=== PATIENT | female | born 1975 | race Hispanic/Latino ===

== ENCOUNTER 2020-07-18 08:27 | Day surgery (SDC) | payer OTHER ==
[2020-07-18 08:40] LABS: Specific Gravity 1.025 (1.005-1.030)
[2020-07-18] MEDS ORDERED: NS 0.9% VIAL 40 ML ONE (09:06)
[2020-07-18] MEDS ORDERED: CEFAZOLIN SODIUM 1 GM/VIAL ONE (09:06)
[2020-07-18] MEDS ORDERED: propofoL 200 MG/20 ML VIAL IV ONE (09:07)
[2020-07-18] MEDS ORDERED: MIDAZOLAM HCL 2 MG/2 ML INJ ONE (09:07)
[2020-07-18] MEDS ORDERED: LIDOCAINE 2% MPF 5 ML VIAL ONE (09:07)
[2020-07-18] MEDS ORDERED: GENTAMICIN SULF 80 MG/2ML INJ ONE (09:07)
[2020-07-18] MEDS ORDERED: GLYCOPYRROLATE 0.2 MG/ML SYR ONE ×2 (09:07)
[2020-07-18] MEDS ORDERED: LIDOCAINE 1% W/EPI 1:100,000 MDV 20 ML VIAL ONE (09:07)
[2020-07-18] MEDS ORDERED: Ringers Lactate 1,000 ML IV ONE ×4 (09:08→14:19)
[2020-07-18] MEDS ORDERED: FENTANYL CITR 250 MCG/5 ML ONE (09:08)
[2020-07-18] MEDS ORDERED: Mastisol Adhesive Liq ONE ×2 (09:08→10:39)
[2020-07-18] MEDS ORDERED: ROCURONIUM 50 MG/5 ML VIAL IV ONE ×3 (09:08→12:44)
[2020-07-18] MEDS ORDERED: BACITRACIN 50000 UNIT VIAL ONE (09:08)
[2020-07-18] MEDS ORDERED: ONDANSETRON 4 MG/2 ML VIAL ONE ×2 (09:09→16:16)
[2020-07-18] MEDS ORDERED: dexAMETHasone 10 MG/ML VIAL ONE (09:10)
[2020-07-18] MEDS ORDERED: KETOROLAC 30 MG/ML INJ ONE ×2 (09:10→12:13)
[2020-07-18] MEDS ORDERED: CEFAZOLIN/SWI 1gm 1 GM/10 ML SYR ONE (09:15)
[2020-07-18] MEDS ORDERED: SCOPOLAMINE HYDROBROMIDE PATCH TD ONE (09:15)
[2020-07-18] MEDS ORDERED: ACETAMINOPHEN 500 MG TAB ONE (09:15)
[2020-07-18] MEDS ORDERED: CELECOXIB 100 MG CAPSULE ONE (09:15)
[2020-07-18] MEDS ORDERED: EPHEDRINE SULF 50 MG/ML VIAL ONE (11:13)
[2020-07-18] MEDS ORDERED: FENTANYL CITR 100 MCG/2 ML ONE ×2 (11:45→13:42)
[2020-07-18] MEDS ORDERED: HYDROCODONE/APAP 7.5/325 MG TAB ONE (16:09)
[2020-07-18 17:03] VITALS: BP 114/73; TEMP 97.1; O2SAT 95
--- NOTE | 2020-07-18 20:29 | OP ---
Surgeon: Derrek Huntley MD Preoperative Diagnosis: Breast descent after implantation. Postoperative Diagnosis: Breast descent after implantation. Procedure: Explantation and lift. Anesthesia: General. Procedure In Detail: After satisfactory induction of general anesthesia, chest was prepped with Dura Prep and dry sterile drapes applied in the usual manner. A 5 cm template was used to outline the rig ht and left areolas and then normal shaped incision was outlined. De-epithelialized with dermabrader and Epicut. Transverse incision was made in the right breast with electrocautery. Flap was thinned to approximately 1.3 cm, elevated toward the sternum, clavicle, anterior axillary line. Then the in ferior incision was made in the partial thickness skin, and then the deepest tissue was formed into c one. After the implant was removed by making lateral incision, implant was retropectoral, smooth wit h 350 filled to 432 on the right and 432 on left. The capsule was left intact. The cone was formed with 2-0 PDS sutures. Then straps were elevated at 12 o'clock, 1:30 and 3 o'clock position. Straps were then woven in and out of the pectoralis muscle back to the base of the cone, tied themselves wit h several 2-0 PDS sutures. This was done for the 12 o'clock, 1:30 and 3 o'clock. Strap was sewn ove r the sternum at 3 o'clock position with 2-0 Ethibond sutures. Wounds were typically stapled closed. Left side was done in a mirror-image manner. We then returned to the right side and marked out the dog ears medially and laterally, cut out the excess skin, irrig ated with antibiotic solution. 10 JOANNE was brought out of the axilla and sewn in place with 2-0 silk. Wound was closed in layers using 3-0 Vicryl for subcutaneous, 3-0 PDS running subcuticular from medi al to lateral and lateral to medial. Tied in the vertical meridian of the breast. This was done in identical manner. Patient was sat up. Site for new nipple-areolar complex was marked out and then t issue was cored out with 5 cm template and nipple areolar complex delivered, sewn with interrupted 4- 0 PDS, followed by 4-0 PDS running subcuticular. Dressings consisted of tincture of benzoin, Steri-S trips, followed by Esmarch, fluffs and Jered wrap. The patient tolerated procedure well, returned to ecovery. The amount of tissue removed from the right breast was 74 g and left breast was 50 g. ROSALINDA/RYAN Voice ID: [id number] Report ID: [id number]
== END 2020-07-18 16:50 | disposition home or self-care (01) ==
LOC: OR 08:27
PROVIDERS: ATTEND Specialist
PROC: 0HPT0JZ Removal of Synthetic Substitute from Right Breast, Open Approach (ICD-10-PCS; 2020-07-18)
PROC: 0HSV0ZZ Reposition Bilateral Breast, Open Approach (ICD-10-PCS; 2020-07-18)
PROC: 0HPU0JZ Removal of Synthetic Substitute from Left Breast, Open Approach (ICD-10-PCS; principal; 2020-07-18 09:00)
DX: N64.81 Ptosis of breast (principal); Z20.822 Contact with and (suspected) exposure to COVID-19
CPT/HCPCS: 81025; 88305; 19328; 19316; U0003; J2704; J1580; J2250; J3010 ×3; J1100; J0690 ×2; J7120 ×4; J2405 ×2

== ENCOUNTER 2020-11-08 11:40 | Day surgery (SDC) | payer OTHER ==
[2020-11-08 11:52] LABS: Specific Gravity 1.015 (1.005-1.030)
[2020-11-08 12:15] LABS: Absolute Lymphocytes (CBC) 1.3 K/uL (0.7-4.9); Basophils % 0.4 % (0-1.3); Hematocrit 33.6 % (36.0-45.0); Lymphocytes % 24.9 % (15.3-44.8); MPV 7.8 fL (7.6-11.3); RBC Red Blood Cell Count 4.33 M/uL (3.86-4.86)
[2020-11-08] MEDS ORDERED: Ringers Lactate 1,000 ML IV ONE ×2 (13:05→16:00)
[2020-11-08] MEDS ORDERED: CEFAZOLIN/SWI 1gm 1 GM/10 ML SYR ONE (13:05)
[2020-11-08] MEDS ORDERED: SCOPOLAMINE HYDROBROMIDE PATCH TD ONE (13:57)
[2020-11-08] MEDS ORDERED: propofoL 200 MG/20 ML VIAL IV ONE (14:16)
[2020-11-08] MEDS ORDERED: LIDOCAINE 1% MPF 5 ML VIAL ONE (14:16)
[2020-11-08] MEDS ORDERED: dexAMETHasone 10 MG/ML VIAL ONE (14:16)
[2020-11-08] MEDS ORDERED: FENTANYL CITR 100 MCG/2 ML ONE ×2 (14:16→15:41)
[2020-11-08] MEDS ORDERED: MIDAZOLAM HCL 2 MG/2 ML INJ ONE (14:16)
[2020-11-08] MEDS ORDERED: ONDANSETRON 4 MG/2 ML VIAL ONE (14:35)
[2020-11-08] MEDS ORDERED: SILVER SULFADIAZINE 1% 50 GM TOP ONE (15:30)
[2020-11-08] MEDS ORDERED: SILVER SULFADIAZINE 1% 25 GM TOP ONE (15:45)
[2020-11-08] MEDS ORDERED: KETOROLAC 30 MG/ML INJ ONE (15:50)
[2020-11-08] MEDS: MEPERIDINE HCL 25 MG/ML SYR ONE ×2 (16:07→16:15)
[2020-11-08] MEDS ORDERED: HYDROCODONE/APAP 5/325 MG TAB ONE (17:14)
[2020-11-08 17:50] VITALS: BP 108/75; TEMP 97.3; O2SAT 98
--- NOTE | 2020-11-08 23:52 | OP ---
Surgeon: Derrek Huntley MD Preoperative Diagnosis: Open wound of the right breast. Postoperative Diagnosis: Open wound of the right breast. Procedure Performed: Debridement of skin, subcutaneous tissue, and keratin. Anesthesia: General. Procedure In Detail: After satisfactory induction of general anesthesia, the chest was prepped with DuraPrep. Dry sterile drapes were applied in the usual manner. The right breast was approached. Th e previous incision, which was in the inframammary fold area, was opened as well as a circumareolar i ncision inferiorly of the area from approximately the 5 o'clock to 10 o'clock position. c urette were used to debride. No evidence of the abscess. The keratin over the wound was curetted an d the dermis was resected. The inferior incision was also debrided of any keratin as well as any sabra mis. Total amount of tissue removed was 14 g. The wound was then jet lavage, irrigated with 3 L of dilute Betadine solution. Electrocautery was used for hemostasis. Wound was closed with 3-0 Vicryl on the subcutaneous tissue, 4-0 PDS running locking on the areola, 3-0 PDS running locking on the inf ramammary fold incision. The needle was placed in the left breast where there is firmness. After as piration, nothing encountered except for some blood. No evidence of any pus or purulence. Dressed w ith Silvadene cream and 4x4s over the incisions, 4x4s, ABD, and tape. The patient tolerated procedure well and returned to ecovery. ROSALINDA/RYAN Voice ID: [id number] Report ID: [id number]
== END 2020-11-08 17:24 | disposition home or self-care (01) ==
LOC: OR 11:40
PROVIDERS: ATTEND Specialist
PROC: 0HD Skin and Breast, Extraction (ICD-10-PCS; principal; 2020-11-08 13:00)
DX: S21.001A Unspecified open wound of right breast, initial encounter (principal); Z20.822 Contact with and (suspected) exposure to COVID-19
CPT/HCPCS: 85025; 36415; 81025; 88304; 11042; J2704; J2250; J3010 ×2; J1100; J2175; J0690; J7120 ×2; J2405